=== PATIENT | female | born 1970 | race American Indian/Alaskan Native ===

== ENCOUNTER → 2020-07-03 | Day surgery (SDC) | payer BC ==
[2020-06-27 12:12] LABS: BUN/Creatinine Ratio 13; Blood Urea Nitrogen 10 mg/dL (7-17); Calcium 9.5 mg/dL (8.4-10.2); Hemolysis Index 6
[2020-06-27 12:22] LABS: Hemoglobin 13.7 gm/dl (10.1-14.3); Red Blood Count 6.03 M/mm3 (3.65-5.03)
[2020-06-27 12:23] LABS: Mean Platelet Volume 7.6 fl (6-12); Red Cell Distribution Width 18.5 % (13.2-15.2)
--- NOTE | 2020-07-02 12:54 | Short Stay Summary ---
Short Stay Documentation Date of service: 06/27/20 Narrative H&P: Patient presents with long history of anemia due to irregular menstrual bleeding. She has a kniown serosal fibroid howeveher most recent evailuation revealed a thckened endometrium and findings suggestive of endometial polyp. She presents for hysteroscopy D&C to better evaluate the endometrium and for removal of endometrial polyp(s) if present. 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 History Operations: gastric band (2006) Gastric band removed (2014) Cholecystectomy (2007) Umbilcial hernia repairx2 hiatal hernia repair x2 Urinary surgery (06/22/2020):cystoscopy with hydrodistention Abnormal PAP: positive Uterine Anomaly: positive fibroids Infection History HIV Risk Eval: no Hx of STD: None Active Medications (reviewed today): MELATONIN CAPSULE (MELATONIN CAPS) FOLINIC-PLUS 4-50-2 MG ORAL TABLET (FOLINIC ACID-VIT B6-VIT B12) BUSPIRONE HCL TABLET (BUSPIRONE HCL TABS) OXYBUTYNIN CHLORIDE TABLET (OXYBUTYNIN CHLORIDE TABS) OLMESARTAN MEDOXOMIL TABLET (OLMESARTAN MEDOXOMIL TABS) LIDOCAINE PATCH (LIDOCAINE PTCH) PREDNISONE TABLET (PREDNISONE TABS) FASENRA PEN 30 MG/ML SUBCUTANEOUS SOLUTION AUTO-INJECTOR (BENRALIZUMAB) EMGALITY 120 MG/ML SUBCUTANEOUS SOLUTION AUTO-INJECTOR (GALCANEZUMAB-GNLM) FLONASE 50 MCG/ACT NASAL SUSPENSION (FLUTICASONE PROPIONATE) 2 sprays, each nostril x1 qd ZOFRAN ODT 8 MG ORAL TABLET DISINTEGRATING (ONDANSETRON) 1 po q12hrs prn PANTOPRAZOLE SODIUM PACKET (PANTOPRAZOLE SODIUM PACK) HYDROCHLOROTHIAZIDE 25 MG ORAL TABLET (HYDROCHLOROTHIAZIDE) 1 po qd SPIRIVA RESPIMAT 2.5 MCG/ACT INHALATION AEROSOL SOLUTION (TIOTROPIUM BROMIDE MONOHYDRATE) CLARITIN TABLET (LORATADINE TABS) SINGULAIR 10 MG ORAL TABLET (MONTELUKAST SODIUM) 1 po qd DULERA 100-5 MCG/ACT INHALATION AEROSOL (MOMETASONE FURO-FORMOTEROL FUM) TRAMADOL HCL 50 MG ORAL TABLET (TRAMADOL HCL) 1 po q6hrs prn LORAZEPAM 1 MG ORAL TABLET (LORAZEPAM) WELLBUTRIN SR 200 MG ORAL TABLET EXTENDED RELEASE 12 HOUR (BUPROPION HCL) 1 po BID PRISTIQ TABLET EXTENDED RELEASE 24 HOUR (DESVENLAFAXINE SUCCINATE FC14L-MAX) LEVOTHYROXINE SODIUM 100 MCG ORAL TABLET (LEVOTHYROXINE SODIUM) 1 po qd METOPROLOL TARTRATE 100 MG ORAL TABLET (METOPROLOL TARTRATE) 2 tabs bid AMLODIPINE BESYLATE TABLET (AMLODIPINE BESYLATE TABS) SUMATRIPTAN SUCCINATE 25 MG ORAL TABLET (SUMATRIPTAN SUCCINATE) PROAIR RESPICLICK 108 (90 Base) MCG/ACT INH AEPB (ALBUTEROL SULFATE) 2puff q4- 6hrs IBUPROFEN 800 MG ORAL TABLET (IBUPROFEN) 1 po TID (PRN) Current Allergies (reviewed today): BACTRIM (Critical) LORTAB (Critical) CLONIDINE HCL (CLONIDINE HCL) (Critical) LEVAQUIN (Critical) Past Medical History: Reviewed history from 05/04/2020 and no changes required: Sister developed portal vein thrombosis while taking ELIOT's Negative for Protein S deficiency( sister ?Protein S deficiency) Insulin resistance/PCOS/hirsutism acne Restless leg syndrome Vitamin D deficiency Dandruff Asthma h/o sleep apnea Neurologic Disorder Migraines G E R D Plantar fasicitis Depression Hypertension Hypothyroidism Interstitial cystitis Overactive bladder Past Surgical History: gastric band (2006) Gastric band removed (2014) Cholecystectomy (2007) Umbilcial hernia repairx2 hiatal hernia repair x2 Urinary surgery (06/22/2020):cystoscopy with hydrodistention Family History Summary: Reviewed history Last on 04/02/2020 and no changes required:07/02/2020 Sister - Has Family History of Spontaneous DVT-PE - Portal vein thrombosis on ELIOT's - Entered On: 02/15/2018 Other Family Member - Has No Family History of Uterine Cancer - Entered On: 12/05/2017 Other Family Member - Has No Family History of Small Bowel Cancer - Entered On: 12/05/2017 Other Family Member - Has No Family History of Stomach Cancer - Entered On: 12/05/2017 Other Family Member - Has No Family History of Pancreatic Cancer - Entered On: 12/05/2017 Other Family Member - Has No Family History of Ovarvian Cancer - Entered On: 12/05/2017 Other Family Member - Has No Family History of Kidney/Urinary Tract Cancer - Entered On: 12/05/2017 Other Family Member - Has No Family History of Colon Cancer - Entered On: 12/05/2017 Other Family Member - Has No Family History of Brain Cancer - Entered On: 12/05/2017 Other Family Member - Has No Family History of Breast Cancer - Entered On: 12/05/2017 Other Family Member - Has No Family History of Biliary Tract Cancer - Entered On: 12/05/2017 Social History: Reviewed history from 11/27/2016 and no changes required: Patient is single Smoking History: Patient has never smoked. Risk Factors: Smoked Tobacco Use: Never smoker Smokeless Tobacco Use: Never Drug use: no HIV high-risk behavior: no Alcohol use: yes Exercise: no Seatbelt use: 100 % Mammogram History: Date of Last Mammogram: 03/27/2020 PAP Smear History: Date of Last PAP Smear: 04/02/2020 Previous Tobacco Use: Signed On 05/04/2020 Smoked Tobacco Use: Never smoker Smokeless Tobacco Use: Never Drug use: no HIV high-risk behavior: no Previous Alcohol Use: Signed On 05/04/2020 Alcohol use: yes Type: occ Drinks per day: social Exercise: no Seatbelt use: 100 % Colonoscopy History: Date of Last Colonoscopy: 07/14/2012 Mammogram History: Date of Last Mammogram: 03/27/2020 PAP Smear History: Date of Last PAP Smear: 04/02/2020 Review of Systems General Denies fever, chills, sweats, anorexia, fatigue, weakness, malaise, weight loss and sleep disorder. Complains of abnormal vaginal bleeding. Denies vaginal discharge, incontinence, dysuria, hematuria, urinary frequency, amenorrhea, menorrhagia, pelvic pain, genital sores, decreased libido, painful periods, painful sex, urinary urgency, hot flashes, vaginal dryness, vaginal itching and vaginal odor. CV Denies chest pains, palpitations, syncope, dyspnea on exertion, orthopnea, PND and peripheral edema. Resp Denies cough, dyspnea at rest, excessive sputum, hemoptysis, wheezing and pleurisy. GI Denies nausea, vomiting, diarrhea, constipation, change in bowel habits, abdominal pain, melena, hematochezia, jaundice, gas/bloating, indigestion/heartburn, dysphagia and odynophagia. Endo Denies cold intolerance, heat intolerance, polydipsia, polyphagia, polyuria and unusual weight change. Breast Denies left breast lump, right breast lump, nipple discharge, bloody discharge from nipple, breast pain, abnormal mammogram and breast enlargement. MS Denies back pain, joint pain, joint swelling, muscle cramps, muscle weakness, stiffness, arthritis, sciatica, restless legs, leg pain at night and leg pain with exertion. Derm Denies rash, itching, dryness and suspicious lesions. Neuro Denies paralysis, paresthesias, headache, seizures, tremors, vertigo, transient blindness, frequent falls, frequent headaches and difficulty walking. Psych Denies depression, anxiety, irritability and mood swings. Eyes Denies blurring, diplopia, irritation, discharge, vision loss, eye pain and photophobia. ENT Denies earache, ear discharge, tinnitus, decreased hearing, nasal congestion, nosebleeds, sore throat and hoarseness. Allergy Denies urticaria, allergic rash, hay fever and recurrent infections. Heme Denies abnormal bruising, bleeding and enlarged lymph nodes. Physical Exam Appearance: well developed, well nourished, no acute distress Other Exams Lungs: no rales, rhonchi, or wheezes Heart: S1, S2, no murmur, rub, or gallop Abdomen: obese Genitourinary Exam Uterus: deferred for EUA Impression & Recommendations: Problem # 1: Menorrhagia/Menometrorrhagia (ICD-626.2) ([id number]) Diagnosis explained to patient . Questions answered. Discussed with patient various medical and surgical therapies common for treatment: Hormonal/medical t herapy,endometrial ablation or hysterectomy. She desires hysteroscopy D&C to better evaluate the endometrium and for removal of endometrial polyp(s) if present. She desires fertility. She was informed this procedure will not remove the known subserosal fibroid. Consent reviewed and signed . Possible laparoscopy or laparotomy explained to patient. The risks and alternatives for this surgery were reviewed with the patient. She was informed of possible bleeding, infection, injury to bowel, bladder, ureters or other adjacent organs. The patient was instructed/informed the following: The normal length of hospital stay for this procedure. Nothing to eat or drink after midnight the evening prior to surgery. Pre-op instruction sheets given. Infection precautions reviewed, patient to call for any signs or symptoms of infection. The usual discomforts associated with this procedure were detailed. Proper use of pain medicines was reviewed. Patient was given ample opportunity to have all her questions answered before signing informed consent. Problem # 2: Endometrial polyp (ICD-621.0) ([id number]) Her updated medication list for this problem includes: Melatonin Capsule (Melatonin caps) Tramadol Hcl 50 Mg Oral Tablet (Tramadol hcl) ..... 1 po q6hrs prn Ibuprofen 800 Mg Oral Tablet (Ibuprofen) ..... 1 po tid (prn) Patient has been reassessed/reevaluated/re-examined. H&P has been reviewed. No interval changes. - History Principal diagnosis: irregular menstrual bleeding. - Allergies and Medications Current Medications: Allergies hydrocodone bitartrate [From Lortab] Allergy (Unverified 04/19/13 11:56) Angioedema sulfamethoxazole [From Bactrim] Allergy (Unverified 04/19/13 11:55) Swelling trimethoprim [From Bactrim] Allergy (Unverified 04/19/13 11:55) Swelling Home Medications Medication Instructions Recorded Confirmed Last Taken Type Claritin 10 mg PO DAILY 06/25/20 06/25/20 Unknown History Dulera 100 Mcg-5 Mcg Inhaler 2 puff INHALATION DAILY 06/25/20 06/27/20 Unknown History Flonase 2 puff INHALATION DAILY 06/25/20 06/25/20 Unknown History Ipratropium/Albuter (Nf) 90 mcg INHALATION DAILY 06/25/20 06/25/20 Unknown History Metoprolol 200 mg PO BID 06/25/20 06/25/20 Unknown History Olmesartan (Nf) 20 mg PO DAILY 06/25/20 06/27/20 Unknown History Pantoprazole 40 mg PO DAILY 06/25/20 06/25/20 Unknown History Spiriva Respimat 2.5 mcg INHALATION DAILY 06/25/20 06/25/20 Unknown History Sumatriptan 100 mg PO PRN PRN 06/25/20 06/25/20 Unknown History Wellbutrin 150 mg PO DAILY 06/25/20 06/27/20 Unknown History Acetaminophen/Codeine [Tylenol 1 tab PO Q6H PRN 06/27/20 06/27/20 Unknown History /Codeine # 3 tab] Albuterol Sulfate [Proventil Hfa] 2 puff IH PRN PRN 06/27/20 06/27/20 Unknown History Desvenlafaxine ER 100 mg PO DAILY 06/27/20 06/27/20 Unknown History Ibuprofen [Motrin] 800 mg PO Q8HR PRN 06/27/20 06/27/20 Unknown History LORazepam 0.5 mg PO PRN PRN 06/27/20 06/27/20 Unknown History Levothyroxine Sodium 175 mcg PO DAILY 06/27/20 06/27/20 Unknown History [Levothyroxine] Loratadine [Allergy Relief] 10 mg PO DAILY 06/27/20 06/27/20 Unknown History Montelukast [Singulair] 10 mg PO QPM 06/27/20 06/27/20 Unknown History Naproxen [Naprosyn] 1,000 mg PO PRN PRN 06/27/20 06/27/20 Unknown History Sucralfate [Carafate] 1 dose PO PRN PRN 06/27/20 06/27/20 Unknown History amLODIPine [Norvasc] 10 mg PO DAILY 06/27/20 06/27/20 Unknown History busPIRone [Buspar] 15 mg PO QHS 06/27/20 06/27/20 Unknown History cloNIDine [Catapres] 0.2 mg PO QHS 06/27/20 06/27/20 Unknown History hydroCHLOROthiazide [Hctz] 12.5 mg PO QDAY 06/27/20 06/27/20 Unknown History - Brief post op/procedure progress note Date of procedure: 07/03/20 Pre-op diagnosis: see operative note - Hospital course Hospital course: Unremarkable - Disposition Condition at discharge: Good Disposition: [id number] TO HOME OR SELFCARE - Discharge Diagnoses (1) Irregular uterine bleeding Status: Acute (2) Body mass index 60.0-69.9, adult Status: Acute Short Stay Discharge Plan Activity: other (no ssex x1week) Weight Bearing Status: Full Weight Bearing Diet: low fat, low cholesterol, low salt Follow up with: MANE PERDOMO MD [Primary Care Provider] - 7 Days TREMAYNE COHEN MD [Staff Physician] - (as scheduled) Prescriptions: Ibuprofen [Motrin 800 MG tab] 800 mg PO Q8HR PRN #15 tab PRN Reason: Pain, Moderate (4-6) Acetaminophen/Codeine [Tylenol /Codeine # 3 tab] 1 tab PO Q6H PRN #10 PRN Reason: Pain , Severe (7-10)
[~2020-07-03] MED LIST: ACETAMINOPHEN 500 MG TAB PO ONE; GLYCOPYRROLATE 0.4 MG/2 ML INJ ONE; HYDROmorphone 1 MG/1 ML INJ IV PRN; LACTATED RINGERS 1,000 ML IV SCH; LIDOCAINE MPF (2%) 20 MG/1 ML VIAL 5 ML ONE; MIDAZOLAM 2 MG/2 ML INJ IV NR; NEOSTIGMINE 10MG/10 ML INJ MDV ONE; ONDANSETRON 4 MG/2 ML INJ IV PRN; ONDANSETRON 4 MG/2 ML INJ ONE; ROCURONIUM 50 MG/5 ML INJ IV ONE; SODIUM CHLORIDE 0.9% IRRIG SOLN 3000 ML IR ONE; SUCCINYLCHOLINE CHLORIDE 200 MG/10 ML INJ MDV ONE; dexAMETHasone 20 MG/5 ML VIAL ONE; fentaNYL 100 MCG/2 ML INJ ONE; oxyCODONE /ACETAMINOPHEN 5-325MG TAB ONE; oxyCODONE /ACETAMINOPHEN 5-325MG TAB PO ONE; propofoL 200 MG/20 ML VIAL IV ONE
--- NOTE | 2020-07-03 09:40 | Anesthesia Day of Surgery ---
Anesthesia Day of Surgery - Day of Surgery Patient Examined: Yes Patient H&P Reviewed: Yes Patient is NPO: Yes
--- NOTE | 2020-07-03 09:45 | Anesthesia Consultation ---
Anesthesia Consult and Med Hx Date of service: 07/03/20 - Airway Anesthetic Teeth Evaluation: Crowns (Temporary) ROM Head & Neck: Adequate Mental/Hyoid Distance: Adequate Mallampati Class: Class III Intubation Access Assessment: Probably Good - Pre-Operative Health Status ASA Pre-Surgery Classification: ASA4 Proposed Anesthetic Plan: General - Pulmonary Hx Smoking: No Hx Asthma: Yes Hx Respiratory Symptoms: No (+1.5FS) COPD: No Hx Pneumonia: No Hx Sleep Apnea: Yes (+CPAP) - Cardiovascular System Hx Hypertension: Yes Hx Heart Attack/AMI: No (Had bladder surgery [id number] and reports a cardiac clearance for that surge) Hx Percutaneous Transluminal Coronary Angioplasty (PTCA): No Hx Pacemaker: No Hx Internal Defibrillator: No Hx Heart Murmur: No - Central Nervous System Hx Seizures: No Hx Back Pain: Yes (AND NECK) Hx Psychiatric Problems: Yes (Anxiety/Depression) - Gastrointestinal Hx Gastroesophageal Reflux Disease: Yes - Endocrine Hx End Stage Renal Disease: No Hx Cirrhosis: No Hx Liver Disease: No Hx Thyroid Disease: Yes Hx Hypothyroidism: Yes - Hematic Hx Anemia: Yes Hx Sickle Cell Disease: No - Other Systems Hx Alcohol Use: Yes (OCC. MIXED DRINK OR WINE) Hx Substance Use: No Hx Cancer: No Hx Obesity: Yes (BMI 62.0 KG) - Additional Comments Anesthesia Medical History Comments: +PONV
--- NOTE | 2020-07-03 11:07 | Operative Report ---
Operative Report Operative Report: Date: 07/03/2020 PREOPERATIVE DIAGNOSES: 1. Menorrhagia/Menometrorrhagia 2. Endometrial polyp 3. Body mass index 62 kg/m POSTOPERATIVE DIAGNOSES: 1. Menorrhagia/Menometrorrhagia 2. Body mass index 62 kg/m PROCEDURE PERFORMED: 1. Hysteroscopy. 2. Dilation and curettage (D&C) ANESTHESIA: General ESTIMATED BLOOD LOSS: Less than minimal cc. INDICATIONS: This is a 49-year-old female that presents above diagnoses. PROCEDURE: The patient was seen in the preoperative suite. Expected procedure and postoperative course discussed with her. She was taken to the operative suite where general anesthesia was performed. She was placed in a dorsal lithotomy position. . She was prepped and draped in the normal sterile fashion. Timeout was performed. Her bladder was drained with the red Varner catheter which produced approximately 10 cc of clear yellow urine. The cervix and vagina were grossly normal with no obvious masses or deformities. A bivalve operative speculum was placed in the vagina and the anterior lip of the cervix was grasped with the single-tooth tenaculum. The uterus was sounded to ~10 cm. The cervix was progressively dilated to allow the diagnostic hysteroscope. Under direct visualization, the ostia were within normal limits. The endometrial lining appeared thin, however, there was no obvious evidence of malignancy. There appeared to be a possible polyp on the anterior lower segment of the uterus. The hysteroscope was removed and a small sharp curette was placed intrauterine very carefully using anterior wall for guidance. Endometrial curettings were obtained. The endometrial sampling was placed on Telfa pad and sent to Pathology for evaluation, permanent. The hysteroscope was introduced again, the tissue had been removed and no evidence of perforation was noted. At this point procedure was ended. The single-tooth tenaculum and speculum were removed. The cervix was found to be hemostatic. Counts were correct. Patient was taken to the PACU stable. Distention fluid: Normal saline Deficit: 80 mL
--- NOTE | 2020-07-03 13:45 | Post Anesthesia Evaluation ---
- Post Anesthesia Evaluation Patient Participated: Yes Airway Patent: Yes Stable Respiratory Function: Yes Nausea/Vomiting: No Temp > 96.8F: Yes Pain Manageable: Yes Adequeate Hydration: Yes Anesthesia Complications: No Block Receding Appropriately: Not Applicable Patient on Ventilator: No
[2020-07-03 17:59] VITALS: BP 118/62
== END | disposition home or self-care (01) ==
LOC: OR 08:29
PROVIDERS: ATTEND Obstetrics & Gynecology
DX: N92.0 Excessive and frequent menstruation with regular cycle (principal); N92.1 Excessive and frequent menstruation with irregular cycle; Z20.828 Contact with and (suspected) exposure to other viral communicable diseases; G43.909 Migraine, unspecified, not intractable, without status migrainosus; I10 Essential (primary) hypertension; J45.909 Unspecified asthma, uncomplicated; G47.30 Sleep apnea, unspecified; K21.9 Gastro-esophageal reflux disease without esophagitis; E03.9 Hypothyroidism, unspecified; F32.9 Major depressive disorder, single episode, unspecified; F41.9 Anxiety disorder, unspecified; D64.9 Anemia, unspecified; Z88.8 Allergy status to other drugs, medicaments and biological substances; Z79.899 Other long term (current) drug therapy; Z90.49 Acquired absence of other specified parts of digestive tract; Z87.440 Personal history of urinary (tract) infections; Z72.89 Other problems related to lifestyle; Z98.890 Other specified postprocedural states
CPT/HCPCS: 36415; 58558; 80048; 81025; 85027; 88305; A4217; J0330; J1100; J2405; J2704; J2710; J3010; J7120; U0003